=== PATIENT | female | born 1970 | race Caucasian/White ===

== ENCOUNTER 2022-08-06 19:53 | Emergency (ER) | payer SELFPAY ==
[~2022-08-06] VITALS: Ht 152.4 cm; Wt 88.6 kg
[2022-08-06] MEDS ORDERED: HYDROcodone-ACET 5/325MG TAB PO ONE (21:45)
[2022-08-06] MEDS ORDERED: ONDANSETRON ODT 4 MG TAB PO ONE (21:45)
[2022-08-07] MEDS ORDERED: HYDROcodone-ACET 5/325MG TAB PO ONE (01:15)
[2022-08-07 01:20] VITALS: BP 131/84
== END 2022-08-07 01:29 | disposition home or self-care (01) ==
LOC: ER 19:53
DX: M79.672 Pain in left foot (principal); Z90.710 Acquired absence of both cervix and uterus
CPT/HCPCS: 73610; 73630; 99284; Q0162

== ENCOUNTER 2023-05-07 15:05 | Inpatient (IN) | payer MEDICAID, OTHER ==
[~2023-05-07] VITALS: Ht 165.1 cm; Wt 95.9 kg
[2023-05-07] MEDS ORDERED: SODIUM CHLORIDE 0.9% 1,000 ML IV ONE ×2 (15:45→16:45)
[2023-05-07 16:11] LABS: Basophils # (auto) 0.1 10 ^3/uL (0-0.2); Basophils % (auto) 0.6 % (0.0-2.0); Eosinophils # (auto) 0.1 10 ^3/uL (0-0.8); Eosinophils % (auto) 0.3 % (0.0-7.0); Lymphocytes # (auto) 1.3 10 ^3/uL (0.4-5.4); Lymphocytes % (auto) 6.6 % (10.0-50.0); Mean Corpuscular Hgb Conc. 32.7 g/dL (32.0-36.0); Mean Corpuscular Volume 88.9 fL (80.0-100.0); Monocytes # (auto) 1.2 10 ^3/uL (0-1.3); Monocytes % (auto) 6.1 % (0.0-12.0); Neutrophils # (auto) 16.9 10 ^3/uL (1.6-8.6); Neutrophils % (auto) 86.4 % (37.0-80.0); Red Blood Cells 5.18 10^6/uL (4.0-5.20); Red Cell Distribution Width 13.7 % (11.8-14.3); White Blood Cell 19.5 10^3/uL (4.4-10.8)
[2023-05-07 16:28] VITALS: PULSE 109; RESP 26; O2SAT 95
[2023-05-07 16:42] LABS: Alanine Aminotransferase 12 U/L (7-40); Albumin 3.8 g/dL (3.2-4.8); Alkaline Phosphatase 145 U/L (46-116); Anion Gap 21.4 (5-15); Aspartate Aminotransferase 10 U/L (13-40); Bilirubin, Total 0.5 mg/dL (0.2-1.0); Blood Urea Nitrogen 28 mg/dL (9-23); Carbon Dioxide 16.6 mmol/L (20-30); Chloride 96 mmol/L (98-107); Potassium 4.3 mmol/L (3.5-5.1); Sodium 134 mmol/L (136-145); Total Protein 6.8 g/dL (5.7-8.2)
[2023-05-07] MEDS ORDERED: FUROSEMIDE 20 MG/2 ML VIAL IV ONE (16:45)
[2023-05-07] MEDS ORDERED: PROCHLORPERAZINE EDISYLATE 5 MG/ML 2ML VIAL IV ONE (16:45)
[2023-05-07] MEDS ORDERED: SODIUM CHLORIDE 0.9% 500 ML IVB ONE (16:45)
[2023-05-07] MEDS ORDERED: LORazepam 2MG/ML-1ML VIAL IV ONE (16:45)
[2023-05-07] MEDS ORDERED: MECLIZINE HCL 25 MG TAB PO ONE (16:45)
[2023-05-07 16:58] LABS: Glucose 545 mg/dL (74-106)
[2023-05-07] MEDS ORDERED: INSULIN LANTUS (GLARGINE) 1 /0.01ml (100units/ml) SC ONE (17:45)
[2023-05-07] MEDS ORDERED: DEXTROSE (50%) 50ML SYRG IV PRN (17:45)
[2023-05-07] MEDS ORDERED: InsuLIN REG 1unit/0.01ml Soln (100units/ml) IV ONE (17:45)
[2023-05-07] MEDS ORDERED: InsuLIN R (HUMAN) 100 UNITS in SODIUM CHL 0.9% 99 ML IV SCH (17:45)
[2023-05-07] MEDS: SODIUM CHLORIDE 0.9% 1,000 ML IV SCH ×2 (18:30→23:40)
[2023-05-07] MEDS: ACCU-CHEK COMFORT CURVE STRIP VI SCH ×4 (18:30→23:01)
[2023-05-07 19:30] VITALS: PULSE 93; RESP 18; O2SAT 97
[2023-05-07] MEDS ORDERED: DOCUSATE SOD 100 MG CAP PO PRN (20:00)
[2023-05-07] MEDS ORDERED: HYDROcodone-ACET 5/325MG TAB PO PRN (20:00)
[2023-05-07] MEDS ORDERED: MECLIZINE HCL 25 MG TAB PO PRN (20:00)
[2023-05-07] MEDS ORDERED: ACETAMINOPHEN 325 MG TAB PO PRN (20:00)
[2023-05-07] MEDS ORDERED: cefTRIAXone 1GM/50ML D5W 50 ML IV ONE (20:00)
[2023-05-07 20:19] LABS: Chloride 100 mmol/L (98-107); Potassium 4.5 mmol/L (3.5-5.1); Sodium 136 mmol/L (136-145)
[2023-05-07 20:21] LABS: Anion Gap 16.4 (5-15); Carbon Dioxide 19.6 mmol/L (20-30)
[2023-05-07 20:27] LABS: Blood Urea Nitrogen 23 mg/dL (9-23); Magnesium 1.9 mg/dL (1.6-2.6)
[2023-05-07 20:32] LABS: Glucose 486 mg/dL (74-106)
[2023-05-07 21:26] LABS: Urine Bacteria NONE SEEN /hpf (None Seen); Urine Blood 1+ /uL (Negative); Urine Budding Yeast LOADED /hpf (None Seen); Urine Clarity HAZY (Clear); Urine Color Colorless (Yellow); Urine Protein, UAD 2+ (Negative); Urine Specific Gravity 1.017 (1.001-1.035); Urine Urobilinogen Normal (Negative); Urine WBC 25 /hpf (0 - 5); Urine pH 5.5 (5.0-8.0)
[2023-05-07] MEDS ORDERED: MORPHINE SULFATE INJ 2 MG/ml SYRG IV PRN (21:30)
[2023-05-07] MEDS ORDERED: NITROGLYCERIN 0.4 MG SL TAB SL PRN (21:30)
[2023-05-07] MEDS ORDERED: SODIUM CHLORIDE 0.9% 1,000 ML IV SCH (21:45)
[2023-05-07 23:42] LABS: Chloride 105 mmol/L (98-107); Potassium 3.7 mmol/L (3.5-5.1); Sodium 140 mmol/L (136-145)
[2023-05-07 23:43] LABS: Anion Gap 8.4 (5-15); Carbon Dioxide 26.6 mmol/L (20-30)
[2023-05-07 23:44] LABS: Calcium 8.9 mg/dL (8.7-10.4)
[2023-05-07 23:49] LABS: BUN/Creatinine Ratio 16.1 (10.0-20.0); Blood Urea Nitrogen 22 mg/dL (9-23); Glucose 256 mg/dL (74-106)
[2023-05-08] MEDS: ACCU-CHEK COMFORT CURVE STRIP VI SCH ×7 (00:07→20:26)
[2023-05-08] MEDS: SODIUM CHLORIDE 0.9% 1,000 ML IV SCH ×4 (02:15→19:45)
[2023-05-08] MEDS ORDERED: DEXTROSE (50%) 50ML SYRG IV PRN (03:15)
[2023-05-08] MEDS: InsuLIN REG 1unit/0.01ml Soln (100units/ml) SC SCH ×6 (04:45→23:13)
[2023-05-08 05:33] LABS: Albumin 3.5 g/dL (3.2-4.8); Alkaline Phosphatase 131 U/L (46-116); Anion Gap 8.8 (5-15); Aspartate Aminotransferase < 8 U/L (13-40); BUN/Creatinine Ratio 18.8 (10.0-20.0); Bilirubin, Total 0.3 mg/dL (0.2-1.0); Blood Urea Nitrogen 19 mg/dL (9-23); Calcium 8.4 mg/dL (8.7-10.4); Carbon Dioxide 24.2 mmol/L (20-30); Chloride 109 mmol/L (98-107); Glucose 162 mg/dL (74-106); Potassium 3.6 mmol/L (3.5-5.1); Sodium 142 mmol/L (136-145); Total Protein 6.5 g/dL (5.7-8.2)
[2023-05-08 05:35] LABS: Basophils # (auto) 0.1 10 ^3/uL (0-0.2); Basophils % (auto) 0.3 % (0.0-2.0); Eosinophils # (auto) 0.1 10 ^3/uL (0-0.8); Eosinophils % (auto) 0.4 % (0.0-7.0); Hematocrit 39.8 % (36.0-46.0); Hemoglobin 13.3 g/dL (12.2-16.2); Lymphocytes # (auto) 1.2 10 ^3/uL (0.4-5.4); Lymphocytes % (auto) 6.6 % (10.0-50.0); Mean Corpuscular Hemoglobin 29.2 pg (28.0-32.0); Mean Corpuscular Hgb Conc. 33.3 g/dL (32.0-36.0); Mean Corpuscular Volume 87.7 fL (80.0-100.0); Monocytes # (auto) 1.2 10 ^3/uL (0-1.3); Monocytes % (auto) 6.7 % (0.0-12.0); Neutrophils # (auto) 15.2 10 ^3/uL (1.6-8.6); Red Blood Cells 4.54 10^6/uL (4.0-5.20); Red Cell Distribution Width 13.6 % (11.8-14.3); White Blood Cell 17.7 10^3/uL (4.4-10.8)
[2023-05-08 05:43] LABS: Alanine Aminotransferase < 9 U/L (7-40)
[2023-05-08 07:45] VITALS: PULSE 110; RESP 22; O2SAT 97
[2023-05-08] MEDS: cefTRIAXone 1GM/50ML D5W 50 ML IV SCH (09:32)
[2023-05-08] MEDS: INSULIN LANTUS (GLARGINE) 1 /0.01ml (100units/ml) SC SCH (11:38)
[2023-05-08] MEDS: FAMOTIDINE (10MG/ML) 2ML VL IV SCH (11:42)
[2023-05-08 11:54] LABS: Chloride 110 mmol/L (98-107); Potassium 3.5 mmol/L (3.5-5.1); Sodium 142 mmol/L (136-145)
[2023-05-08 11:55] LABS: Anion Gap 9.6 (5-15); Carbon Dioxide 22.4 mmol/L (20-30)
[2023-05-08 11:56] LABS: Calcium 8.3 mg/dL (8.5-10.1)
[2023-05-08 12:01] LABS: BUN/Creatinine Ratio 16.8 (10.0-20.0); Blood Urea Nitrogen 16 mg/dL (9-23); Glucose 189 mg/dL (74-106)
[2023-05-08 16:35] VITALS: BP 122/78; PULSE 88; RESP 20; TEMP 98; O2SAT 96
[2023-05-08] MEDS ORDERED: FLUO1TAB12 PO (17:03)
[2023-05-08 19:00] VITALS: PULSE 78; RESP 18; O2SAT 95
[2023-05-08 20:00] VITALS: BP 134/78; PULSE 105; PULSE 97; RESP 18; TEMP 36.7; O2SAT 97
[2023-05-08 22:00] VITALS: BP 144/78; PULSE 81; RESP 16; TEMP 99.4; O2SAT 91
[2023-05-09] MEDS: SODIUM CHLORIDE 0.9% 1,000 ML IV SCH ×4 (02:25→22:25)
[2023-05-09] MEDS: ACCU-CHEK COMFORT CURVE STRIP VI SCH ×6 (04:00→20:00)
[2023-05-09] MEDS: InsuLIN REG 1unit/0.01ml Soln (100units/ml) SC SCH ×5 (04:48→20:00)
[2023-05-09] MEDS: ONDANSETRON HCL 4 MG/2 ML VIAL IV PRN ×2 (04:51→18:43)
[2023-05-09 05:00] VITALS: BP 136/71; PULSE 101; RESP 17; TEMP 101.7; O2SAT 97
[2023-05-09 08:00] VITALS: PULSE 92; RESP 16
[2023-05-09 09:00] VITALS: BP 117/67; PULSE 81; RESP 17; TEMP 98; O2SAT 91
[2023-05-09] MEDS: FAMOTIDINE (10MG/ML) 2ML VL IV SCH (09:42)
[2023-05-09] MEDS: cefTRIAXone 1GM/50ML D5W 50 ML IV SCH (09:42)
[2023-05-09] MEDS: INSULIN LANTUS (GLARGINE) 1 /0.01ml (100units/ml) SC SCH (09:55)
[2023-05-09 13:00] VITALS: BP 121/83; PULSE 93; RESP 16; TEMP 98.7; O2SAT 94
[2023-05-09 20:00] VITALS: BP 134/78; PULSE 74; RESP 18; TEMP 37.1; O2SAT 97
[2023-05-09 22:00] VITALS: BP 141/77; PULSE 96; RESP 18; TEMP 98.5; O2SAT 95
[2023-05-10] MEDS: ACCU-CHEK COMFORT CURVE STRIP VI SCH ×5 (04:00→16:00)
[2023-05-10] MEDS: InsuLIN REG 1unit/0.01ml Soln (100units/ml) SC SCH ×5 (04:00→16:00)
[2023-05-10 05:00] VITALS: BP 154/80; PULSE 111; RESP 20; TEMP 98.6; O2SAT 97
[2023-05-10] MEDS: SODIUM CHLORIDE 0.9% 1,000 ML IV SCH ×3 (05:05→18:13)
[2023-05-10 08:00] VITALS: RESP 16
[2023-05-10] MEDS: cefTRIAXone 1GM/50ML D5W 50 ML IV SCH (08:58)
[2023-05-10] MEDS: INSULIN LANTUS (GLARGINE) 1 /0.01ml (100units/ml) SC SCH (09:04)
[2023-05-10 09:13] VITALS: BP 137/78; PULSE 103; RESP 17; TEMP 98.3; O2SAT 97
[2023-05-10] MEDS: FAMOTIDINE (10MG/ML) 2ML VL IV SCH (09:19)
[2023-05-10 13:00] VITALS: BP 141/86; PULSE 103; RESP 16; TEMP 98.7; O2SAT 90
[2023-05-10] MEDS ORDERED: INSLANTI SC (13:07)
[2023-05-10 14:12] VITALS: BP 137/78; PULSE 103; RESP 17; TEMP 98.3; O2SAT 97
== END 2023-05-10 18:10 | disposition home or self-care (01) | DRG 720 ==
LOC: ER 15:05 → TELE 21:21 → TELE-WESTW 05-08 13:05
PROVIDERS: ADMIT Nurse Practitioner Family; ATTEND Family Medicine
DX: A41.9 Sepsis, unspecified organism (principal); E11.11 Type 2 diabetes mellitus with ketoacidosis with coma; R65.21 Severe sepsis with septic shock; N17.9 Acute kidney failure, unspecified; N39.0 Urinary tract infection, site not specified; E11.21 Type 2 diabetes mellitus with diabetic nephropathy; E78.00 Pure hypercholesterolemia, unspecified; E86.0 Dehydration; F41.9 Anxiety disorder, unspecified; I10 Essential (primary) hypertension; Z91.199 Patient's noncompliance with other medical treatment and regimen due to unspecified reason; Z59.7 Insufficient social insurance and welfare support; Z85.41 Personal history of malignant neoplasm of cervix uteri; Z85.42 Personal history of malignant neoplasm of other parts of uterus; Z90.710 Acquired absence of both cervix and uterus; Z88.8 Allergy status to other drugs, medicaments and biological substances
CPT/HCPCS: 36415; 36600; 70450; 71045; 80048; 80053; 81001; 82010; 82805; 82962; 83036; 83735; 83930; 84100; 84484; 85025; 87040; 87086; 93005; 96361; 96365; 96368; 96372; 96375; 96376; 97163; G0378; J0696; J1815; J2405; J3490

== ENCOUNTER 2023-05-25 16:49 | Emergency (ER) | payer OTHER ==
[~2023-05-25] VITALS: Ht 152.4 cm; Wt 90.1 kg
[~2023-05-25 16:49] MED LIST: FLUO1TAB12 PO; INSLANTI SC
[2023-05-25 17:24] LABS: Basophils # (auto) 0.1 10 ^3/uL (0-0.2); Eosinophils # (auto) 0.3 10 ^3/uL (0-0.8); Hemoglobin 13.7 g/dL (12.2-16.2); Lymphocytes # (auto) 1.8 10 ^3/uL (0.4-5.4)
[2023-05-25 17:26] LABS: Basophils % (auto) 0.8 % (0.0-2.0); Eosinophils % (auto) 2.7 % (0.0-7.0); Hematocrit 40.6 % (36.0-46.0); Lymphocytes % (auto) 18.3 % (10.0-50.0); Mean Corpuscular Hemoglobin 29.3 pg (28.0-32.0); Mean Corpuscular Hgb Conc. 33.7 g/dL (32.0-36.0); Monocytes # (auto) 0.7 10 ^3/uL (0-1.3); Monocytes % (auto) 7.4 % (0.0-12.0); Neutrophils % (auto) 70.8 % (37.0-80.0); Red Blood Cells 4.66 10^6/uL (4.0-5.20); Red Cell Distribution Width 13.6 % (11.8-14.3); White Blood Cell 9.9 10^3/uL (4.4-10.8)
[2023-05-25 17:41] LABS: Alanine Aminotransferase 17 U/L (7-40); Albumin 4.2 g/dL (3.2-4.8); Alkaline Phosphatase 125 U/L (46-116); Anion Gap 7 (5-15); Aspartate Aminotransferase 21 U/L (13-40); BUN/Creatinine Ratio 9.8 (10.0-20.0); Blood Urea Nitrogen 12 mg/dL (9-23); Carbon Dioxide 26 mmol/L (20-30); Chloride 104 mmol/L (98-107); Glucose 232 mg/dL (74-106); Potassium 3.6 mmol/L (3.5-5.1); Sodium 137 mmol/L (136-145)
[2023-05-25 17:42] LABS: Bilirubin, Total 0.3 mg/dL (0.2-1.0); Total Protein 7.5 g/dL (5.7-8.2)
[2023-05-25 17:53] VITALS: PULSE 102; RESP 17; O2SAT 93
[2023-05-25 20:00] VITALS: PULSE 99; RESP 20; O2SAT 95
[2023-05-25 20:47] LABS: Urine Bacteria MANY /hpf (None Seen); Urine Blood 3+ /uL (Negative); Urine Clarity HAZY (Clear); Urine Color Yellow (Yellow); Urine Hyaline Cast MOD /lpf (0 - 2); Urine Mucus FEW (None Seen); Urine Protein, UAD 3+ (Negative); Urine Specific Gravity 1.017 (1.001-1.035); Urine WBC 30 /hpf (0 - 5)
[2023-05-25] MEDS ORDERED: SULFAMETHOX W/TRIMETH(800/160MG) DS TAB PO ONE (21:30)
[2023-05-25] MEDS ORDERED: BACDST PO (21:35)
[2023-05-25 22:00] VITALS: BP 132/81; PULSE 99; RESP 17; TEMP 98; O2SAT 94
== END 2023-05-25 22:40 | disposition home or self-care (01) ==
LOC: EDBD 16:49 → ER 16:49
DX: N39.0 Urinary tract infection, site not specified (principal); I10 Essential (primary) hypertension; E11.9 Type 2 diabetes mellitus without complications; E78.5 Hyperlipidemia, unspecified; Z90.710 Acquired absence of both cervix and uterus; Z79.4 Long term (current) use of insulin; Z79.899 Other long term (current) drug therapy; Z88.8 Allergy status to other drugs, medicaments and biological substances
CPT/HCPCS: 36415; 70450; 72125; 80053; 81001; 83690; 83880; 84484; 85025; 93005

== ENCOUNTER 2023-11-17 09:08 | Emergency (ER) | payer OTHER ==
[~2023-11-17] VITALS: Ht 152.4 cm; Wt 85.1 kg
[~2023-11-17 09:08] MED LIST changes: +BACDST PO
[2023-11-17 09:52] VITALS: TEMP 97.4
[2023-11-17 10:29] LABS: Basophils # (auto) 0.1 10 ^3/uL (0-0.2); Eosinophils # (auto) 0.3 10 ^3/uL (0-0.8); Eosinophils % (auto) 4.4 % (0.0-7.0); Hematocrit 47.6 % (36.0-46.0); Hemoglobin 15.4 g/dL (12.2-16.2); Lymphocytes # (auto) 1.2 10 ^3/uL (0.4-5.4); Lymphocytes % (auto) 16.8 % (10.0-50.0); Mean Corpuscular Hemoglobin 28.5 pg (28.0-32.0); Mean Corpuscular Hgb Conc. 32.3 g/dL (32.0-36.0); Mean Corpuscular Volume 88.2 fL (80.0-100.0); Monocytes # (auto) 0.6 10 ^3/uL (0-1.3); Monocytes % (auto) 8.4 % (0.0-12.0); Neutrophils # (auto) 4.9 10 ^3/uL (1.6-8.6); Neutrophils % (auto) 69.4 % (37.0-80.0); Nucleated Red Blood Cells % 0.1 %; Red Blood Cells 5.39 10^6/uL (4.0-5.20); Red Cell Distribution Width 14.7 % (11.8-14.3); White Blood Cell 7.1 10^3/uL (4.4-10.8)
[2023-11-17 10:38] LABS: Chloride 100 mmol/L (98-107); Potassium 3.8 mmol/L (3.5-5.1); Sodium 134 mmol/L (136-145)
[2023-11-17 10:39] LABS: Anion Gap 10 (5-15); Carbon Dioxide 24 mmol/L (20-30)
[2023-11-17 10:40] LABS: Calcium 9.1 mg/dL (8.5-10.1)
[2023-11-17 10:44] LABS: BUN/Creatinine Ratio 10.6 (10.0-20.0); Blood Urea Nitrogen 14 mg/dL (9-23)
[2023-11-17 10:49] LABS: Glucose 580 mg/dL (74-106)
[2023-11-17] MEDS: SODIUM CHLORIDE 0.9% 1,000 ML IV ONE ×2 (11:07→12:10)
[2023-11-17] MEDS: InsuLIN REG 1unit/0.01ml Soln (100units/ml) IV ONE ×2 (11:07→13:04)
[2023-11-17] MEDS: KETOROLAC TROMETH 30 MG/ML 1ML VIAL IV ONE (11:12)
[2023-11-17] MEDS: cefTRIAXone 1GM/50ML D5W 50 ML IV ONE (11:14)
[2023-11-17 11:16] LABS: Urine Bacteria NONE SEEN /hpf (None Seen); Urine Blood 3+ /uL (Negative); Urine Clarity HAZY (Clear); Urine Color Yellow (Yellow); Urine Protein, UAD 1+ (Negative); Urine Specific Gravity 1.031 (1.001-1.035); Urine Urobilinogen Normal (Negative); Urine WBC 103 /hpf (0 - 5); Urine pH 5.5 (5.0-8.0)
[2023-11-17 13:32] VITALS: BP 106/67; PULSE 106; RESP 15; O2SAT 98
[2023-11-17] MEDS ORDERED: BACDST PO (13:40)
[2023-11-17] MEDS ORDERED: PHEN-922 PO (13:40)
== END 2023-11-17 13:48 | disposition home or self-care (01) ==
LOC: ER 09:08
DX: N39.0 Urinary tract infection, site not specified (principal); E11.65 Type 2 diabetes mellitus with hyperglycemia; I10 Essential (primary) hypertension; E78.5 Hyperlipidemia, unspecified; Z90.710 Acquired absence of both cervix and uterus; Z79.4 Long term (current) use of insulin; Z79.899 Other long term (current) drug therapy; Z88.8 Allergy status to other drugs, medicaments and biological substances
CPT/HCPCS: 36415; 80048; 81001; 85025; 96361; 96365; 96375; 96376; 99284; J0696; J1815; J1885; J7030

== ENCOUNTER 2024-01-21 09:05 | Inpatient (IN) | payer OTHER ==
[~2024-01-21] VITALS: Ht 152.4 cm; Wt 87.0 kg
[~2024-01-21 09:05] MED LIST changes: +PHEN-922 PO; +ZOFR4T PO
[2024-01-21 10:06] LABS: Urine Bacteria FEW /hpf (None Seen); Urine Blood 3+ /uL (Negative); Urine Clarity Turbid (Clear); Urine Color Light-Brown (Yellow); Urine Protein, UAD 2+ (Negative); Urine Specific Gravity 1.032 (1.001-1.035); Urine Urobilinogen Normal (Negative); Urine WBC 268 /hpf (0 - 5); Urine pH 5.5 (5.0-9.0)
[2024-01-21] MEDS: ONDANSETRON ODT 4 MG TAB PO ONE (10:32)
[2024-01-21 10:53] LABS: Basophils # (auto) 0.1 10 ^3/uL (0-0.2); Basophils % (auto) 0.9 % (0.0-2.0); Eosinophils # (auto) 0.3 10 ^3/uL (0-0.8); Eosinophils % (auto) 4.6 % (0.0-7.0); Hematocrit 47.6 % (36.0-46.0); Hemoglobin 15.5 g/dL (12.2-16.2); Lymphocytes # (auto) 0.8 10 ^3/uL (0.4-5.4); Lymphocytes % (auto) 13.9 % (10.0-50.0); Mean Corpuscular Hemoglobin 28.7 pg (28.0-32.0); Mean Corpuscular Hgb Conc. 32.5 g/dL (32.0-36.0); Mean Corpuscular Volume 88.1 fL (80.0-100.0); Monocytes # (auto) 0.4 10 ^3/uL (0-1.3); Monocytes % (auto) 6.7 % (0.0-12.0); Neutrophils # (auto) 4.3 10 ^3/uL (1.6-8.6); Neutrophils % (auto) 73.9 % (37.0-80.0); Red Cell Distribution Width 14.2 % (11.8-14.3); White Blood Cell 5.8 10^3/uL (4.4-10.8)
[2024-01-21 11:01] LABS: Alanine Aminotransferase 31 U/L (7-40); Albumin 4.1 g/dL (3.2-4.8); Alkaline Phosphatase 221 U/L (46-116); Anion Gap 8 (5-15); Aspartate Aminotransferase 33 U/L (13-40); BUN/Creatinine Ratio 9.3 (10.0-20.0); Bilirubin, Total 0.4 mg/dL (0.2-1.0); Blood Urea Nitrogen 14 mg/dL (9-23); Calcium 9.6 mg/dL (8.5-10.1); Carbon Dioxide 26 mmol/L (20-30); Chloride 98 mmol/L (98-107); Potassium 4.3 mmol/L (3.5-5.1); Sodium 132 mmol/L (136-145)
[2024-01-21 11:13] LABS: Glucose 646 mg/dL (74-106)
[2024-01-21] MEDS: LIDOCAINE VISCOUS 2% 15ML UD PO ONE (11:19)
[2024-01-21] MEDS: MAALOX PLUS or MAALOX 30 ML PO ONE (11:19)
[2024-01-21] MEDS: DONNATAL 5ml ORAL Elix (BELLADONNA ALK-PHENOBARB) PO ONE (11:21)
[2024-01-21 11:56] LABS: Lipase 110 U/L (12-53)
[2024-01-21] MEDS: InsuLIN REG 1unit/0.01ml Soln (100units/ml) IV ONE (12:04)
[2024-01-21] MEDS: LACTATED RINGER'S 2,000 ML IV ONE (12:06)
[2024-01-21] MEDS ORDERED: ONDANSETRON HCL 4 MG/2 ML VIAL IV PRN (12:30)
[2024-01-21] MEDS ORDERED: ACETAMINOPHEN 325 MG TAB PO PRN (12:30)
[2024-01-21] MEDS ORDERED: DEXTROSE (50%) 50ML SYRG IV PRN (12:30)
[2024-01-21] MEDS: SODIUM CHLORIDE 0.9% 1,000 ML IV SCH (12:30)
[2024-01-21] MEDS ORDERED: cefTRIAXone 1GM/50ML D5W 50 ML IV ONE (12:30)
[2024-01-21] MEDS ORDERED: metroNIDAZOLE 500MG/100ML 100 ML IV ONE (12:30)
[2024-01-21] MEDS: PANTOPRAZOLE 40 MG/10 ML VIAL INJ IV ONE (12:34)
[2024-01-21] MEDS: cefTRIAXone 1GM/50ML D5W 50 ML IV ONE (13:40)
[2024-01-21] MEDS ORDERED: metroNIDAZOLE 500MG/100ML 100 ML IV SCH (14:00)
[2024-01-21] MEDS: InsuLIN REG 1unit/0.01ml Soln (100units/ml) SC SCH (16:38)
[2024-01-21] MEDS: ACCU-CHEK COMFORT CURVE STRIP VI SCH (16:44)
[2024-01-21] MEDS: HYDROcodone-ACET 5/325MG TAB PO PRN (18:48)
[2024-01-21 19:30] VITALS: PULSE 108; RESP 19; O2SAT 98
[2024-01-22 01:00] VITALS: BP 144/88; PULSE 98; RESP 20; TEMP 98.3; O2SAT 91
[2024-01-22] MEDS: InsuLIN REG 1unit/0.01ml Soln (100units/ml) SC SCH (01:03)
[2024-01-22 05:00] VITALS: BP 129/87; PULSE 102; RESP 20; TEMP 98.2; O2SAT 90
[2024-01-22 05:35] LABS: Basophils # (auto) 0.1 10 ^3/uL (0-0.2); Eosinophils # (auto) 0.4 10 ^3/uL (0-0.8); Eosinophils % (auto) 8.4 % (0.0-7.0); Hematocrit 43.4 % (36.0-46.0); Hemoglobin 14.5 g/dL (12.2-16.2); Lymphocytes # (auto) 1.2 10 ^3/uL (0.4-5.4); Lymphocytes % (auto) 22.4 % (10.0-50.0); Mean Corpuscular Hemoglobin 28.8 pg (28.0-32.0); Mean Corpuscular Hgb Conc. 33.3 g/dL (32.0-36.0); Mean Corpuscular Volume 86.5 fL (80.0-100.0); Monocytes # (auto) 0.5 10 ^3/uL (0-1.3); Monocytes % (auto) 8.8 % (0.0-12.0); Neutrophils # (auto) 3.1 10 ^3/uL (1.6-8.6); Neutrophils % (auto) 59.4 % (37.0-80.0); Red Blood Cells 5.02 10^6/uL (4.0-5.20); Red Cell Distribution Width 14.1 % (11.8-14.3); White Blood Cell 5.3 10^3/uL (4.4-10.8)
[2024-01-22 05:52] LABS: Alanine Aminotransferase 23 U/L (7-40); Albumin 3.4 g/dL (3.2-4.8); Alkaline Phosphatase 175 U/L (46-116); Anion Gap 8 (5-15); Aspartate Aminotransferase 26 U/L (13-40); BUN/Creatinine Ratio 10.9 (10.0-20.0); Blood Urea Nitrogen 13 mg/dL (9-23); Calcium 9.5 mg/dL (8.7-10.4); Carbon Dioxide 28 mmol/L (20-30); Chloride 101 mmol/L (98-107); Glucose 220 mg/dL (74-106); Potassium 3.8 mmol/L (3.5-5.1); Sodium 137 mmol/L (136-145)
[2024-01-22 05:53] LABS: Bilirubin, Total 0.4 mg/dL (0.2-1.0); Total Protein 6.9 g/dL (5.7-8.2)
[2024-01-22] MEDS ORDERED: INSREG3 IV (07:40)
[2024-01-22 08:00] VITALS: BP 134/103; PULSE 79; RESP 17; TEMP 97.1; O2SAT 96
[2024-01-22] MEDS: cefTRIAXone 1GM/50ML D5W 50 ML IV SCH (08:55)
[2024-01-22 09:00] VITALS: BP 134/93; PULSE 79; RESP 19; TEMP 97.1; O2SAT 96
[2024-01-22] MEDS ORDERED: cefTRIAXone 1GM/50ML D5W 50 ML IV SCH (09:00)
[2024-01-22] MEDS ORDERED: INSLISPI SC (10:38)
[2024-01-22] MEDS: ENOXAPARIN SOD 40 MG/0.4 ML SYRINGE SC SCH (10:39)
[2024-01-22] MEDS: PANTOPRAZOLE 40 MG/10 ML VIAL INJ IV SCH (10:40)
[2024-01-22 12:38] LABS: Phosphorus 3.3 mg/dL (2.4-5.1)
[2024-01-22 12:47] VITALS: BP 115/74; PULSE 102; RESP 20; TEMP 97.3; O2SAT 97
[2024-01-22 13:37] LABS: INR 1.06 (0.9-1.15); Partial Thromboplastin Time 28.1 SEC (24.5-34.5); Prothrombin Time 11.2 sec (9.3-11.8)
[2024-01-22] MEDS ORDERED: LEVO500T91 PO (14:10)
[2024-01-22 14:33] VITALS: BP 115/74; PULSE 102; RESP 20; TEMP 97.3; O2SAT 97
== END 2024-01-22 15:08 | disposition home or self-care (01) | DRG 249 ==
LOC: ER 09:05 → OVERFLOW 12:28 → CENTRAL 21:53
PROVIDERS: ADMIT Nurse Practitioner Family; ATTEND Nurse Practitioner Family
DX: K52.9 Noninfective gastroenteritis and colitis, unspecified (principal); N17.0 Acute kidney failure with tubular necrosis; N30.00 Acute cystitis without hematuria; E66.01 Morbid (severe) obesity due to excess calories; I10 Essential (primary) hypertension; F41.9 Anxiety disorder, unspecified; F17.210 Nicotine dependence, cigarettes, uncomplicated; E78.5 Hyperlipidemia, unspecified; Z68.37 Body mass index [BMI] 37.0-37.9, adult; Z90.710 Acquired absence of both cervix and uterus; Z88.8 Allergy status to other drugs, medicaments and biological substances; Z85.41 Personal history of malignant neoplasm of cervix uteri; Z79.4 Long term (current) use of insulin; E11.65 Type 2 diabetes mellitus with hyperglycemia
CPT/HCPCS: 36415; 80053; 80061; 81001; 82010; 82140; 82306; 82607; 82962; 83036; 83605; 83690; 83735; 83930; 84100; 84443; 85025; 85610; 85730; 87040; 87086; 96361; 96365; 96375; C9113; G0378; J1815; Q0162